=== PATIENT | male | born 1940 | race Caucasian/White ===

== ENCOUNTER 2018-02-20 21:14 | Emergency (ER) | END 2018-02-21 01:37 | disposition home or self-care (01) ==

== ENCOUNTER 2018-10-20 06:15 | Emergency (ER) | payer BC ==
[~2018-10-20] VITALS: Ht 185.4 cm; Wt 81.5 kg
[~2018-10-20 06:15] MED LIST: AMOX500C2 PO; AZIT250T PO; BENZ-6 PO; DIGO250T PO; HYDR-4011 PO; LISI-313 PO; METO-336 PO; TAMS0.4C2 PO; WARF4TAB PO; WARF6TAB PO; ZOC10 PO
[2018-10-20 06:21] VITALS: BP 136/54; Ht 185.4 cm; Wt 81.5 kg
[2018-10-20] MEDS ORDERED: HYDROmorphONE 1 MG/ML SYG IV STA (06:51)
[2018-10-20] MEDS ORDERED: ONDANSETRON 4 MG INJ IV STA (06:51)
[2018-10-20 08:07] VITALS: PULSE 58; RESP 18
[2018-10-20] MEDS ORDERED: DOCU-144 PO (08:23)
[2018-10-20] MEDS ORDERED: HYDR-4011 PO (08:23)
--- NOTE | 2018-10-20 08:59 | ERD ---
ER Documentation Chief Complaint Chief Complaint L SHOULDER PAIN; HX OF INOP ROTATOR CUFF INJURY HPI This is a 78-year-old male who presented to the emergency department with right shoulder pain for the past 24 hours. The patient indicates he has a history of bilateral rotator cuff tears and has had chronic pain with a dislocation of the left shoulder. The patient denies any recent trauma to the right shoulder. The patient states that it hurts to move his right upper extremity. He was unable to brush his teeth this morning due to the pain. He did not take any analgesic medication. He has had no fevers or shaking no chills. He states the pain that he is experiencing is similar to the pain he felt when he dislocated his left shoulder. ROS All systems reviewed and are negative except as per history of present illness. Medications Home Meds Active Scripts Docusate Sodium* (Colace*) 100 Mg Capsule, 100 MG PO Q24H PRN for CONSTIPATION, #30 CAP Prov:OUMAR PHILLIPS MD 10/20/18 Hydrocodone/Acetaminophen ([place] 5-325 Tablet) 1 Each Tablet, 1 TAB PO Q6H PRN for PAIN, #20 TAB Prov:OUAMR PHILLIPS MD 10/20/18 Hydrocodone/Acetaminophen ([place] 5-325 Tablet) 1 Each Tablet, 1 EACH PO Q6 PRN for PAIN, #15 TAB Prov:LINDA GOOD DO 02/21/18 Azithromycin* (Zithromax*) 250 Mg Tablet, 250 MG PO .ToñitoPACK DIRECTED, #6 TAB TAKE 500 MG (2 TABS) THE FIRST DAY THEN 250 MG (1 TAB) DAYS 2-5 Prov:NADIR SAMAYOA MD 10/02/14 Reported Medications Benzonatate* (Tessalon Perle*) 100 Mg Capsule, 100 MG PO Q8H PRN for COUGH, CAP 10/02/14 Simvastatin (Simvastatin) 10 Mg Tablet, 10 MG PO HS, TAB 10/02/14 Tamsulosin Hcl* (Tamsulosin Hcl*) 0.4 Mg Cap.er.24h, 0.4 MG PO DAILY, CAP 10/02/14 Warfarin Sodium* (Coumadin*) 4 Mg Tablet, 8 MG PO ON FRIDAY, TAB 10/02/14 Warfarin Sodium* (Coumadin*) 6 Mg Tablet, 6 MG PO DAILY EXCEPT FRI, TAB 10/02/14 Metoprolol Succinate* (Toprol XL*) 100 Mg Tab.sr.24h, 100 MG PO DAILY, TAB 10/02/14 Digoxin* (Digoxin*) 0.25 Mg Tab, 0.25 MG PO DAILY, TAB 10/02/14 Lisinopril* (Lisinopril*) 5 Mg Tablet, 5 MG PO DAILY, TAB 10/02/14 Amoxicillin* (Amoxicillin*) 500 Mg Cap, 2000 MG PO PRIOR TO DENTAL WORK, CAP 10/02/14 Allergies Allergies: Coded Allergies: No Known Allergies (Verified Allergy, Mild, 10/02/14) PMhx/Soc History of Surgery: Yes (MITRAL VALVE REPLACEMENT 1996, hernia) Anesthesia Reaction: No Hx Neurological Disorder: No Hx Respiratory Disorders: No Hx Cardiac Disorders: Yes (HTN, MITRAL VALVE REPLACEMENT,AFIB, CHF, cholesterol) Hx Psychiatric Problems: No Hx Miscellaneous Medical Probl: No Hx Alcohol Use: Yes (OCCASSIONAL) Hx Substance Use: No Hx Tobacco Use: No Smoking Status: Never smoker Physical Exam Vitals Vital Signs Date Temp Pulse Resp B/P (MAP) Pulse Ox O2 O2 Flow FiO2 Time Delivery Rate 10/20/18 58 18 100 Room Air 08:07 10/20/18 61 16 137/31 100 Room Air 06:42 (66) 10/20/18 98.0 47 18 136/54 96 06:21 (81) Physical Exam Constitutional:Well-developed. Well-nourished. HEENT:Normocephalic. Atraumatic.Pupils were equal round reactive to light. Moist mucous membranes.No tonsillar exudates. Respiratory: Not using accessory muscles of respiration.Lungs were clear to auscultation bilaterally. No rhonchi. No rales. No wheezing. Cardiovascular: Regular rate regular rhythm.No murmurs. No rubs were appreciated.S1, S2 normal. Distal pulses are palpable 2+ bilaterally. Muscle skeletal: Normal light to the right humeral head with mild soft tissue swelling of the right shoulder. Patient was able to abduct the right upper extremity to roughly 45 degrees but this exacerbated pain. Patient is able to flex extend at the right elbow. Handgrip is equal and symmetrical bilaterally. Skin: No petechia, no purpura. No lesions on the palms or the soles of the feet. No maculopapular rash. No erythremia fluctuance or induration of the right shoulder. NEURO: Patient was alert, awake, orientated x3.No facial droop. Gait observed and normal with no ataxia.Speech had regular rate and rhythm. Sensation intact over the radial ulnar median nerve distribution of the right upper extremity as well as the axillary nerve. Results 24 hrs Current Medications Medications Dose Sig/Odilia Start Time Status Last (Trade) Ordered Route PRN Stop Time Admin Dose Reason Admin 1 mg ONCE STAT 10/20/18 DC 10/20/18 Hydromorphone IV 06:51 07:14 HCl 10/20/18 06:53 (Dilaudid) Ondansetron 4 mg ONCE STAT 10/20/18 DC 10/20/18 HCl (Zofran IV 06:51 07:14 Inj) 10/20/18 06:53 Procedures/MDM This is a 78-year-old male that presented to the emergency department right shoulder pain. There did appear to be no underlying septic arthritis. I did obtain radiographic imaging the patient's right shoulder which indicate the followin. 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 2. No acute fracture dislocation or AC separation. 3. Again noted is ovoid soft tissue density lateral to the right greater tuberosity of uncertain etiology but may represent inflamed bursa. Follow-up MRI may be helpful. 4. Osteopenia. The patient had IV access established. He did receive intravenous Dilaudid and Zofran for analgesic control in order to help assist with obtaining the radiographic imaging. Indicates the patient did not appear to be a fracture dislocation. They do not show any signs of overlying infectious process. The patient indicates he has had multiple MRIs of his shoulders as he does have bilateral rotator cuff tears and stated he is not a surgical candidate as he has significant heart disease on warfarin. The patient felt comfortable being discharged home and follow-up with his orthopedic surgeon. He was given a prescription of [place] for analgesia control. The patient was discharged home in fair condition. They were instructed to return to the emergency department at any time if there was any worsening of their condition. The patient stated they would follow up with their PCP in the next 24-48 hours to initiate a suitable medication regimen under the care of their PCP as well as to allow their PCP to monitor any drug reactions. The patient was discharged home with prescriptions after they gave informed consent to the new medication. They were also fully informed by myself on the adverse effects and adverse drug interactions in order to provide adequate safeguards to prevent possible adverse reactions to medications. The patient already had a sling he presented with. Departure Diagnosis: Primary Impression: Shoulder pain Chronicity: acute Laterality: right Qualified Codes: M25.511 - Pain in right shoulder Condition: Fair Patient Instructions: Shoulder Sprain OUMAR PHILLIPS MD Oct 20, 2018 08:59
== END 2018-10-20 08:07 | disposition home or self-care (01) ==
LOC: E/R 06:15
DX: M25.511 Pain in right shoulder (principal); I11.0 Hypertensive heart disease with heart failure; I50.9 Heart failure, unspecified; Z79.01 Long term (current) use of anticoagulants
CPT/HCPCS: 73030; 96374; 96375; 99284; J1170; J2405

== ENCOUNTER 2018-12-20 07:53 | Emergency (ER) | payer BC ==
[~2018-12-20] VITALS: Wt 79.1 kg
[~2018-12-20 07:53] MED LIST changes: +DOCU-144 PO
[2018-12-20 08:16] VITALS: BP 113/57; PULSE 69; RESP 19
== END 2018-12-20 09:55 | disposition left against medical advice (07) ==
LOC: E/R 07:53
DX: K91.840 Postprocedural hemorrhage of a digestive system organ or structure following a digestive system procedure (principal); I11.0 Hypertensive heart disease with heart failure; I50.9 Heart failure, unspecified; D64.9 Anemia, unspecified; Z79.01 Long term (current) use of anticoagulants; Z86.73 Personal history of transient ischemic attack (TIA), and cerebral infarction without residual deficits; Z95.2 Presence of prosthetic heart valve
CPT/HCPCS: 36415; 80048; 85025; 85610; 85730; 99283